=== PATIENT | female | born 1950 | race Caucasian/White ===

== ENCOUNTER 2023-04-29 11:53 | Emergency (ER) | payer MEDICARE, OTHER, SELFPAY ==
[2023-04-29 11:55] VITALS: BP 138/63; PULSE 78; RESP 18; TEMP 36.8; O2SAT 99
[2023-04-29 12:09] VITALS: BMI 15.4
--- NOTE | 2023-04-29 12:09 | EDS_ITS ---
HPI History of Present Illness Chief Complaint: General Illness Informant: patient and family Narrative Narrative: Patient presents with a mass on her left jaw and states I want you to do something about this. But she tells me she does not know what it is. Its been there since December. Her family states that she was diagnosed in December with some cancer. They did 1 radiation therapy up at [facility]. She did not want to go back because it hurt when they put the mask on. They also states that she had lung cancer and she had throat cancer back in 2018. She had radiation then but no chemo or surgery. They think they might have had that recommended to them but it was not done and they are not sure if it really was recommended. The patient denies any coughing or shortness of breath. The family states she does cough. The patient does admit that she has had some discomfort in the chest off and on but is not going on now. She complains that it is hard to chew and swallow foods. But she drinks plenty of fluids. She is losing weight progressively but that is been going on for months. 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 It sounds like her treatment goal is to be able to eat food. It is very hard to get any details beyond this. I am trying to send [facility] for a summary of her therapy or treatment or diagnosis if we can get that. Other than the above issue patient and family deny any medical conditions. No allergies She is on oxycodone for pain originally prescribed by [facility] oncology but now prescribed by her family doctor. It is for pain in her throat. PFSH PFSH Allergy/AdvReac Type Severity Reaction Status Date / Time No Known Allergies Allergy Verified 04/29/23 11:57 Social History Smoking Status: Former smoker ROS ROS ED ROS Narrative Review of systems varies considerably between family and patient. I am going to click positive review of systems if any of the people stated it was positive. But nobody agrees on all the symptoms. Constitutional Constitutional ED: Denies chills, fever(s) or subjective ENT ENT ED: Reports sore throat; Denies rhinorrhea Cardiovascular Cardiovascular: Reports chest pain; Denies palpitations or racing heartbeat Respiratory/Chest Respiratory/Chest: Reports cough; Denies dyspnea or sputum Gastrointestinal Gastrointestinal: Denies abdominal pain, nausea or vomiting Genitourinary Genitourinary ED: Denies dysuria Musculoskeletal Musculoskeletal: Reports neck pain; Denies back pain Integumentary Denies rash Neurologic Neurologic: Denies headache(s) Hematologic/Lymphatic Hematologic/Lymphatic: Denies easy bleeding or easy bruising Allergic/Immunologic Allergic/Immunologic ED: Reports mouth swelling and other Details: Is swelling in the side of the neck and back of the throat but no real swelling of the tongue itself. ; Denies tongue swelling or urticaria EXAM Physical Exam Narrative Exam Narrative: CONSTITUTIONAL: Patient is nontoxic in appearance. The patient looks comfortable. Work of breathing looks normal. She does look quite thin. HEENT: Patient has obvious firm mass at the angle of the mandible on the left. It does not look red fluctuant or infected. Intraorally it seems like this mass is mildly irritated and is swelling on the left side of her posterior pharyngeal region. She is handling secretions well. Tongue does not seem involved. She can open and close the mouth but there is some subtle limitation of this. EYES: No conjunctival injection. No proptosis. NECK:No JVD. No stridor. Mass as above does extend slightly down into the upper neck below the angle of the mandible but it is mostly in the angle area. CARDIOVASCULAR: Regular rate. Regular rhythm. No notable murmur. No JVD. Pulses are equal peripherally. RESPIRATORY: No respiratory distress. Breathing is unlabored. No wheezes. No rhonchi. No rales. No pain with a deep breath. No chest wall tenderness. GASTROINTESTINAL: Not distended. Bowel sounds are normal. No tenderness. No guarding. No rebound. No palpable mass. No bruit is heard. GENITOURINARY: No tenderness over the bladder. No CVA tenderness. MUSCULOSKELETAL: Atraumatic. No peripheral edema. No cord. NEUROLOGICAL: Patient is alert and appropriate. No focal deficit noted. SKIN: No noted rashes. No diaphoresis. PSYCHIATRIC: Patient is calm. Mood is appropriate. But patient is very frustrated when I state that I cannot get radiation treatment today. I explained that I can help get her set up locally with an oncologist. She did like that plan as she does not want to go to [facility] again. But I explained that we will evaluate her for acute medical conditions today. If everything looks okay we can still probably get her home but we will need follow-up. She still seems very upset with this. Const Vital Signs: 04/29/23 11:55 04/29/23 12:49 04/29/23 12:49 Temperature 98.3 F Temperature Source Temporal Pulse Rate 78 63 Respiratory Rate 18 9 L Respiratory Effort Normal Non-Labored Respiratory Pattern Normal Blood Pressure 138/63 H 146/74 H Blood Pressure Mean 88 98 Pulse Ox 99 Oxygen Delivery Method Room Air Room Air 04/29/23 14:24 Temperature Temperature Source Pulse Rate 67 Respiratory Rate 16 Respiratory Effort Respiratory Pattern Blood Pressure 145/63 H Blood Pressure Mean 90 Pulse Ox Oxygen Delivery Method Room Air MDM MDM MDM Narrative Medical decision making narrative: TakePatient's VCUG shows no marked abnormalities. Patient's electrolytes are overall normal other than minimal elevation of the BUN to creatinine ratio. Patient's liver function test are overall look normal. Her albumin is minimally low at 2.8 likely due to slightly decreased. My independent interpretation of the CT of the neck and chest do show a mass in the left neck. I also reviewed the final reading including the chest. Patient wants to go home. She would like to follow-up locally. I did discuss the case directly with Dr. Morgan but he will be out of town until the . He is happy to see her then. He recommended that if she has problems in the meantime she should go back to [facility] because all her work-up and data is there. I just found out from him that she last saw them on about the fifth of this month. This is not information they shared. They stated that she had radiation therapy a month or 2 ago. I do not think she needs to come in the hospital now. It sounds like her treatment is palliative. We have encouraged her to go up to [facility] but she has freedom to do that or not do that. They are welcome to wait and get an appointment down here for care also. Lab Data Attestation: I reviewed the patient's lab results. Labs: Laboratory Results - last 24 hr 04/29/23 12:41 WBC 7.2 RBC 4.54 Hgb 13.4 Hct 45.0 MCV 99.1 H MCH 29.5 MCHC 29.8 L RDW Std Deviation 53.1 H RDW Coeff of Tavia 14.6 Plt Count 217 MPV 10.0 Immature Gran % (Auto) 0.600 Neut % (Auto) 84.8 H Lymph % (Auto) 5.8 L Traverse % (Auto) 7.8 Eos % (Auto) 0.4 Baso % (Auto) 0.6 Absolute Neuts (auto) 6.1 Absolute Lymphs (auto) 0.42 L Nucleated RBC % 0 Differential Comment COMMENT Sodium 140 Potassium 3.5 Chloride 106 Carbon Dioxide 24.0 Anion Gap 10 BUN 16 Creatinine 0.70 Estim Creat Clear Calc 27.92 Est GFR (MDRD) Af Amer 104 Est GFR (MDRD) Non-Af 86 BUN/Creatinine Ratio 22.7 H Glucose 62 L Calcium 9.0 Total Bilirubin 0.60 AST 19 ALT 15 Alkaline Phosphatase 47 Troponin I High Sens 9 Total Protein 6.5 Albumin 2.8 L Globulin 3.7 Albumin/Globulin Ratio 0.8 L Radiography Diagnostic Testing: Clinical Impression(s) from Imaging Studies Chest CTA 04/29/23 12:20 IMPRESSION: 4 cm x 2.6 cm cystic mass in the left upper lobe. Hypoinflation. Mild degree of emphysematous changes. Electronically Signed: Elmer Lovelace MD at 14:06 EDT , Soft Tissue Neck CT 04/29/23 12:20 IMPRESSION: Large heterogeneously enhancing mass involving the left side of the tongue with extension into the left maxillary region and superior aspect the left cervical region but the structures of the ramus of the mandible as well as the mandibular ridge. This extends caudally into the oropharynx on the left side with a complex of the airway. A similar-appearing heterogeneous mass is seen in the left posterior trunk of the neck. Electronically Signed: Elmer Lovelace MD at 14:03 EDT , EKG Initial EKG: Comments: My independent interpretation the patient's EKG done for history of intermittent chest pain shows a normal sinus rhythm with a rate of 73. No ectopy. No acute ST elevation or depression. Mild sinus arrhythmia. NC i nterval QRS duration and QTc are normal. Discharge Plan Triage Chief Complaint: General Illness ED Provider: Deepak Sanon Dx/Rx/DC Orders Clinical Impression: Laryngeal cancer Instructions: Cancer Overview Primary Care Provider: Vanessa Deng Referrals: Cy Morgan, [Med Staff - Active Staff] - As soon as possible NOT,DEFINED [Non-Staff] - Activity Restrictions/Additional Instructions: You are welcome to follow-up locally with Dr. Morgan. However, he may not be in the office until 11 May. You are also welcome to follow-up at [facility] that has all your records and has a plan set for your care. Disposition Disposition: Home, Self Care
--- NOTE | 2023-04-29 12:20 | EKG12_ITS ---
Test Reason : GENERAL Blood Pressure : / mmHG Vent. Rate : 063 BPM Atrial Rate : 063 BPM P-R Int : 186 ms QRS Dur : 074 ms QT Int : 428 ms P-R-T Axes : 081 022 070 degrees QTc Int : 437 ms Normal sinus rhythm with sinus arrhythmia Normal ECG No previous ECGs available Confirmed by COTY MAYERS, JOSE JUAN ([id number]), editor sound THOMAS EARLY ([id number]) on 05/05/2023 11:49:55 AM Referred By: Confirmed By:CHONG ANSARI MD
--- NOTE | 2023-04-29 12:20 | CT_ITS ---
STUDY: CT SOFT TISSUE NECK WITH CONTRAST REASON FOR EXAM: Female, 72 years old. Dysphagia. Chest pain and cough. RADIATION DOSAGE (If Supplied By Facility): CTDIvol = ( 7.21 ) mGy, DLP = ( 339.53 ) mGycm TECHNIQUE: The patient was scanned in a multi-detector CT scanner. High resolution transaxial imaging was performed following intravenous administration of IV 75mL Isovue-370. Sagittal and coronal images were reconstructed. Individualized dose optimization techniques were used for this CT. COMPARISON: None. FINDINGS: There is a 3.3 cm x 2.4 cm mass in the left upper lobe. There is a 4.6 cm x 6.2 cm x 4.5 cm heterogeneously enhancing mass involving the left side of the tongue with extension into the left maxillary region and superior aspect of the left cervical region with the destruction of the ramus of the mandible on the left side extending into the mandibular ridge. This also extends into the left oropharynx causing narrowing of the airway. A similar appearing heterogeneous enhancing mass is seen in the left posterior triangle of the neck measuring 2.17 x 1.8 cm. Normal visualized nasopharynx. Normal retropharyngeal space. Normal perivertebral space. Normal visualized bilateral faucial tonsils. The visualized cervical lymph nodes (levels I-) are within normal size limits, and maintain normal morphology. There is no demonstrated solid or cystic mass lesion. There is no abnormal contrast enhancement. Normal epiglottis, bilateral vallecula and hypopharynx. The pre-epiglottic and paraglottic adipose spaces are normal. Normal visualized bilateral piriform sinuses, aryepiglottic folds, vocal cords, and arytenoid-cricoid articulations. Normal subglottic trachea. Normal bilateral lobes of the thyroid gland. Normal visualized paranasal sinuses. There is multilevel degenerative changes of the cervical spine. CT/Soft Tissue Neck WITH Contrast IMPRESSION: Large heterogeneously enhancing mass involving the left side of the tongue with extension into the left maxillary region and superior aspect the left cervical region but the structures of the ramus of the mandible as well as the mandibular ridge. This extends caudally into the oropharynx on the left side with a complex of the airway. A similar-appearing heterogeneous mass is seen in the left posterior trunk of the neck. Electronically Signed: Elmer Lovelace MD at 14:03 EDT ,
--- NOTE | 2023-04-29 12:20 | CT_ITS ---
STUDY: CTA CHEST REASON FOR EXAM: Female, 72 years old. Cancer, cough RADIATION DOSAGE (If Supplied By Facility): CTDIvol = ( 7.21 ) mGy, DLP = ( 339.53 ) mGycm TECHNIQUE: The examination was performed with the intravenous administration of IV 75mL Isovue-370. Post-processing of the angiographic images was performed, with multiplanar reformation and 3D reconstruction. Individualized dose optimization techniques were used for this CT. COMPARISON: None. FINDINGS: Normal enhancement of the main pulmonary artery and right and left pulmonary arteries. Normal enhancement of the bilateral peripheral pulmonary arteries. There is no demonstrated pulmonary embolism. There is atherosclerotic calcification of the aortic arch with tortuosity. There is no demonstrated aortic dissection. Normal heart and pericardium. Normal mediastinum. Normal hilar regions. Normal visualized trachea and bronchi. The lungs are hyper expanded, with flattening of the hemidiaphragms. Mild emphysematous changes. There is a 4 cm x 2.6 cm mass in the left upper lobe. Normal pleura. Normal chest wall structures. There are degenerative changes of thoracic spine. Increased kyphosis. Normal visualized upper abdomen. CT/CTA Chest W/WO Contrast IMPRESSION: 4 cm x 2.6 cm cystic mass in the left upper lobe. Hypoinflation. Mild degree of emphysematous changes. Electronically Signed: Elmer Lovelace MD at 14:06 EDT ,
--- NOTE | 2023-04-29 12:28 | ED.RN ---
NO OLD EKGS LISTED.
[2023-04-29 12:49] VITALS: BP 146/74; PULSE 63; RESP 9
[2023-04-29 12:49] LABS: Absolute Lymphocyte Count 0.42 X10^3/uL (0.83-4.51); Absolute Neutrophil Count 6.1 X10^3/uL (2.0-7.7); Basophil# 0.04 X10^3/uL; Basophil% 0.6 % (0-1); Eosinophil# 0.03 X10^3/uL; Eosinophils% 0.4 % (0-5); Hemoglobin 13.4 g/dL (12.0-15.0); Lymphocyte # 0.42 X10^3/ul (0.83-4.51); Lymphocyte % 5.8 % (19-41); Mean Corp Hgb Conc 29.8 g/dL (32-36); Mean Corpuscular Hgb 29.5 pg (27.0-32.0); Mean Corpuscular Volume 99.1 fL (81-99); Monocyte# 0.56 X10^3/uL; Monocyte% 7.8 % (0-10); NRBC Flagged by Analyzer 0 % (0-5); Neutrophil # 6.13 X10^3/uL (2.7-7.7); Neutrophil % 84.8 % (47-70); POSITIVE DIFFERENTIAL YES; Platelet Count 217 K/mm3 (150-450); RBC Distribution Width CV 14.6 % (11.6-14.6); RBC Distribution Width SD 53.1 fl (35.1-43.9); Red Blood Count 4.54 M/mm3 (4.2-5.4); White Blood Count 7.2 K/mm3 (4.4-11.0)
[2023-04-29 12:52] LABS: Differential Indicated SCAN CRITERIA MET
[2023-04-29 13:13] LABS: ALB/GLOB Ratio 0.8 RATIO (0.9-2.4); AST(SGOT) 19 U/L (15-37); Alanine Aminotransfer ALT/SGPT 15 U/L (13-56); Albumin, Serum 2.8 g/dL (3.2-5.0); Alkaline Phosphatase 47 U/L (45-117); Anion Gap 10 (5-15); BUN 16 mg/dL (7-18); BUN/Creat Ratio 22.7 RATIO (10-20); Chloride 106 mmol/L (98-107); EST Glomerular Filtration Rate 86 mL/min (>60); Est Glom Filt Rate - Afr Amer 104 mL/min (>60); Estimated Creatinine Clearance 27.92 ml/min; Globulin 3.7 g/dL (2.2-4.2); Glucose 62 mg/dL (74-106); Potassium 3.5 mmol/L (3.5-5.1); Protein, Total 6.5 g/dL (6.4-8.2); Sodium Level 140 mmol/L (136-145); Troponin-I HS 9 pg/mL (3.0-54.0)
[2023-04-29 14:24] VITALS: BP 145/63; PULSE 67; RESP 16
--- NOTE | 2023-04-29 16:06 | ED.RN ---
PT REFUSING TO KEEP CARDIAC LEADS ON. PT EDUCATED THAT THIS RN HAS ORDER FROM THE PHYSICIAN (DR. VILLAGOMEZ) TO KEEP PT ON THERAPEUTIC RECREATION LEADER. PT VERBALIZES UNDERSTANDING, STILL REFUSING.
== END 2023-04-29 16:35 | disposition home or self-care (01) ==
PROVIDERS: Emergency Provider Emergency Medicine; PCP Family Medicine; Visit Provider Emergency Medicine
DX: C32.9 Malignant neoplasm of larynx, unspecified (principal); Z87.891 Personal history of nicotine dependence; Z85.118 Personal history of other malignant neoplasm of bronchus and lung
CPT/HCPCS: 70491; 71275; 80053; 84484; 85025; 93005; 96360; 96361; 99284; J7030; Q9967; A4216

== ENCOUNTER 2023-05-02 08:52 | Emergency (ER) | payer MEDICARE, OTHER, SELFPAY ==
[2023-05-02 08:53] VITALS: BP 144/66; PULSE 71; RESP 12; TEMP 35.7; O2SAT 93
[2023-05-02 08:57] VITALS: BMI 15.0
--- NOTE | 2023-05-02 09:20 | EDS_ITS ---
HPI History of Present Illness Chief Complaint: Weakness Informant: patient Onset/Context/Timing Onset: Weeks Context: Gradual Onset Timing: Continuous Current Severity: Mild Maximum Severity: Mild Narrative Narrative: 72-year-old female has known left jaw cancer and possibly lung cancer. She had a prior history of lung cancer. She has not gotten in yet but is setting up an appointment to see Dr. Cy Morgan of oncology. He has not taken care of her for this nor in the past. States she just does not feel well. She was she is just in the emergency department on the had a full lab work-up which was unremarkable. says she is not taking in much p.o. She is able to swallow. She denies any vomiting or diarrhea. Prior similar symptoms: Yes Recent Illness/Hospitalization: No PFSH PFSH Home Medications oxycodone 5 mg tablet 5 mg PO Q6H PRN pain 5 days #20 tabs 05/02/23 [Rx Last Taken Unknown] Allergy/AdvReac Type Severity Reaction Status Date / Time No Known Allergies Allergy Verified 05/02/23 08:53 Social History Smoking Status: Former smoker ROS ROS ED ROS Narrative Denies. Just feels weak. Review of Systems ROS Unobtainable: Denies due to encephalopathy Constitutional Constitutional ED: Denies chills or fever(s) Eyes Eyes: Denies blurry vision ENT ENT ED: Denies ear pain Cardiovascular Cardiovascular: Denies chest pain Respiratory/Chest Respiratory/Chest: Denies cough or dyspnea Gastrointestinal Gastrointestinal: Denies abdominal pain Genitourinary Genitourinary ED: Denies dysuria or hematuria Musculoskeletal Musculoskeletal: Denies arthralgias Integumentary Denies abscess Neurologic Neurologic: Denies headache(s) Psychiatric Psychiatric: Denies anxiety Endocrine Endocrinology: Denies cold intolerance Hematologic/Lymphatic Hematologic/Lymphatic: Reports none Allergic/Immunologic Allergic/Immunologic ED: Reports other Details: Left jaw pain from the cancer. ; Denies mouth swelling or tongue swelling EXAM Physical Exam Narrative Exam Narrative: Significant female no acute distress. Vital signs stable afebrile. present in the room. H EENT exam given reactive light. She has a large mass on her left lower jaw at the angle of the mandible. She is able to open and close her mouth. She has moist mucous membranes. Posterior pharynx unremarkable. The mass does appear to involve the left lower jaw and molar area. Trachea midline. Lungs are clear. Heart regular rhythm no murmur. Chest wall nontender. Abdomen soft nontender. Normal bowel sounds no peritoneal signs. She is moving all 4 extremities. Calves are nontender without edema. Neurologically she is awake and alert. No focal motor deficits. Const Vital Signs: 05/02/23 08:53 Temperature 96.3 F L Temperature Source Temporal Pulse Rate 71 Respiratory Rate 12 Blood Pressure 144/66 H Blood Pressure Mean 92 Pulse Ox 93 Oxygen Delivery Method Room Air Positive well nourished and well developed; Negative for obese, cachectic, contractures or unkempt General Appearance ED: well developed and NAD; Negative for unkempt, cachectic, contractures, cyanotic, diaphoretic or pallor Nutritional Appearance: Negative for cachectic or obese HEENT Reports moist mucous membranes; Denies dry mucous membranes HEENT Narrative: Large mass, left lower jaw at the angle of the mandible. Able to open and close her mouth. Negative for trauma or tenderness Mouth ED: No dry mucous membranes Mouth: No dry mucous membranes Eyes PERRL and EOMs intact bilaterally General Eye ED: Negative for pale conjunctiva or scleral icterus Neck supple and no JVD Neck Narrative: Large left lower jaw neck mass. General: Negative for tenderness Lymph Lymphatic: Negative for other Chest Wall inspection of chest normal and palpation of chest normal Chest: Negative for other Resp normal respiratory effort and clear to auscultation bilaterally Effort and Inspection: Negative for retractions Auscultation: Negative for rales, rhonchi or wheezes Cardio regular rate, regular rhythm, S1 normal heart sound, S2 normal heart sound and no murmurs Palpation: Negative for palpable S3 Rate: Negative for bradycardia Rhythm: Negative for abnormal rhythm GI normal to inspection, nondistended, normoactive bowel sounds, non-tender, non- distended and no masses Inspection: Negative for abdominal distention Auscultation: normoactive bowel sounds Palpation: soft; Negative for tender or guarding Back/Spine no CVA tenderness General Back: Negative for CVA tenderness Cervical Spine: Negative for cervical spine tenderness Thoracic Spine / Upper Back: Negative for thoracic spinal tenderness Lumbar Spine / Lower Back: Negative for lumbar spinal tenderness Extremity normal to inspection General Extremety ED: Negative for edema or tenderness General Extremity: Negative for edema Neuro oriented x3 and CN's II-XII intact bilaterally Sensorium / Orientation: alert; Negative for orientation impaired, lethargic or stuporous Motor Exam: strength 5/5 throughout Psych mental status grossly normal Appearance: Negative for unkempt Attitude: No agitated Mood & Affect: depressed; Negative for anxious or tearful Skin no rashes or lesions noted, no wounds and skin turgor normal General Skin Exam: elasticity normal; Negative for jaundice or pallor Lesions: No lesion noted Rashes: No rashes noted Trauma: Negative for abrasion Wounds: Negative for wounds noted MDM MDM MDM Narrative Medical decision making narrative: 72-year-old female has a large left lower jaw mass that is reportedly cancer. She has not gotten to see oncology yet. She was just in the emergency department several days ago on negative lab work-up. I discussed with her and her that the oncology follow-up and definitive plan for the jaw mass would not be taken care of through the emergency department they did to follow- up with oncology. She seems depressed and upset with things are not moving qu icker. I reviewed her labs from yesterday they are unremarkable. I will write her for pain medication for home. She did not want any nausea medication. An outpatient follow-up with one of the local oncologist. History & Record Review Discussion w/independent historian: Patient Additional record(s) reviewed:: Prior inpatient record, Prior outpatient record, Prior ED visit and Prior labs Discharge Plan Triage Chief Complaint: Weakness ED Provider: Davey Cosby Dx/Rx/DC Orders Clinical Impression: Cancer of jaw Prescriptions: New oxycodone 5 mg tablet 5 mg PO Q6H PRN (Reason: pain) 5 Days Qty: 20 0RF Primary Care Provider: Vanessa Deng Referrals: Vanessa Deng DO [Primary Care Provider] - As Needed Bernardo Tovar MD [Med Staff - Active Staff] - As soon as possible Cy Morgan DO [Med Staff - Active Staff] - As soon as possible Activity Restrictions/Additional Instructions: Soft diet. Plenty of fluids and rest. Oxycodone for pain. Call and follow-up with either Dr. Cy Morgan or Dr. Armani Tovar to get in for an oncology appointment soon as possible so they can start treating your jaw cancer. Disposition Disposition: Home, Self Care
[2023-05-02 09:57] VITALS: RESP 16
== END 2023-05-02 09:58 | disposition home or self-care (01) ==
PROVIDERS: Emergency Provider Emergency Medicine; PCP Family Medicine; Visit Provider Emergency Medicine
DX: C76.0 Malignant neoplasm of head, face and neck (principal); Z87.891 Personal history of nicotine dependence; R53.1 Weakness; Z85.118 Personal history of other malignant neoplasm of bronchus and lung
CPT/HCPCS: 99282